=== PATIENT | female | born 1970 | race Caucasian/White ===

== ENCOUNTER 2018-04-14 18:21 | Emergency (ER) | payer OTHER ==
[2018-04-14 18:29] VITALS: TEMP 98.4
[2018-04-14 18:55] LABS: Amphetamine Screen,Urine Not Detected (NotDetected); Barbiturate Screen,Urine Not Detected (NotDetected); Benzodiazepines Screen,Urine Not Detected (NotDetected); Cocaine Screen,Urine Not Detected (NotDetected); Methadone Screen, Urine Not Detected (NotDetected); Opiate Screen,Urine Not Detected (NotDetected); Oxycodone Screen, Urine Not Detected (NotDetected); Phencyclidine Screen,Urine Not Detected (NotDetected); Tricyclic Antidepressant,Urine Not Detected (NotDetected); Urn Cannabinoid Scrn Not Detected (NotDetected)
--- NOTE | 2018-04-14 19:09 | ED ---
Psych HPI - General Chief Complaint: Psychiatric Symptoms Stated Complaint: mental health - petiioned Time Seen by Provider: 04/14/18 18:32 Source: patient, police, RN notes reviewed Mode of arrival: ambulatory Limitations: no limitations - History of Present Illness Initial Comments: 39-year-old female presents emergency department for psychiatric evaluation. Patient states that she recently found out that her is having an affair with her friend. Patient states that she made some threats to her family in which she knew she shouldn't have said. Patient states that her family called in concerned for her health. Patient states that she has been drinking alcohol all day today. She states that she is not suicidal or homicidal. He does admit that she is upset about the situation. Denies any physical complaints. Patient denies any drug use. - Related Data Home Medications Medication Instructions Recorded Confirmed Atenolol 25 mg PO DAILY 04/14/18 04/14/18 Lisinopril [Zestril] 20 mg PO DAILY 04/14/18 04/14/18 Allergies Allergy/AdvReac Type Severity Reaction Status Date / Time No Known Allergies Allergy Verified 04/14/18 18:29 Review of Systems ROS Statement: Those systems with pertinent positive or pertinent negative responses have been documented in the HPI. ROS Other: All systems not noted in ROS Statement are negative. Past Medical History Past Medical History: Hypertension History of Any Multi-Drug Resistant Organisms: None Reported Past Surgical History: No Surgical Hx Reported Past Psychological History: Anxiety, Bipolar, Depression Smoking Status: Former smoker Past Alcohol Use History: Occasional Past Drug Use History: None Reported General Exam Limitations: no limitations General appearance: alert, in no apparent distress, anxious Head exam: Present: atraumatic, normocephalic, normal inspection Eye exam: Present: normal appearance, PERRL, EOMI. Absent: scleral icterus, conjunctival injection, periorbital swelling ENT exam: Present: normal exam, mucous membranes moist Neck exam: Present: normal inspection, full ROM. Absent: tenderness, meningismus, lymphadenopathy Respiratory exam: Present: normal lung sounds bilaterally. Absent: respiratory distress, wheezes, rales, rhonchi, stridor Cardiovascular Exam: Present: normal rhythm, tachycardia, normal heart sounds. Absent: systolic murmur, diastolic murmur, rubs, gallop, clicks Neurological exam: Present: alert, oriented X3, CN II-XII intact Psychiatric exam: Present: anxious Skin exam: Present: warm, dry, intact, normal color. Absent: rash Course Vital Signs 04/14/18 04/14/18 18:26 19:16 Temperature 98.4 F Pulse Rate 119 H Respiratory 20 Rate Blood Pressure 222/159 186/102 O2 Sat by Pulse 98 Oximetry Medical Decision Making - Medical Decision Making 47-year-old female presented emergency from for psychiatric evaluation. Patient reportedly made some threats secondary to reaction of finding out about an affair. Patient was evaluated by EPS and case discussed with on-call psychiatry. They do not feel that she needs inpatient treatment patient contracts for safety and she is not suicidal. - Lab Data Lab Results 04/14/18 Range/Units 18:25 Urine Opiates Screen Not Detected (NotDetected) Ur Oxycodone Screen Not Detected (NotDetected) Urine Methadone Screen Not Detected (NotDetected) Ur Propoxyphene Screen Not Detected (NotDetected) Ur Barbiturates Screen Not Detected (NotDetected) U Tricyclic Antidepress Not Detected (NotDetected) Ur Phencyclidine Scrn Not Detected (NotDetected) Ur Amphetamines Screen Not Detected (NotDetected) U Methamphetamines Scrn Not Detected (NotDetected) U Benzodiazepines Scrn Not Detected (NotDetected) Urine Cocaine Screen Not Detected (NotDetected) U Marijuana (THC) Screen Not Detected (NotDetected) Disposition Clinical Impression: Depression, Adjustment reaction Disposition: HOME SELF-CARE Condition: Stable Instructions: Depression (ED) Additional Instructions: Please return to the Emergency Department if symptoms worsen or any other concerns. Is patient prescribed a controlled substance at d/c from ED?: No Referrals: Deven Rojas MD [Primary Care Provider] - 1-2 days Time of Disposition: 03:43
[2018-04-14] MEDS ORDERED: LISINOPRIL 20 MG TAB PO STA (19:23)
[2018-04-14] MEDS ORDERED: ATENOLOL 25 MG TAB PO STA (19:23)
[2018-04-15 04:13] VITALS: BP 157/82; PULSE 82; RESP 18
== END 2018-04-15 04:29 | disposition home or self-care (01) ==
LOC: EC 18:21
DX: F43.22 Adjustment disorder with anxiety (principal); F32.9 Major depressive disorder, single episode, unspecified; I10 Essential (primary) hypertension; Z79.899 Other long term (current) drug therapy; Z87.891 Personal history of nicotine dependence
CPT/HCPCS: 80306; 82075; 99284

== ENCOUNTER 2019-01-13 14:31 | Emergency (ER) | payer OTHER ==
[2019-01-13 14:54] VITALS: RESP 18
[2019-01-13] MEDS ORDERED: PANTOPRAZOLE 40 MG/10 ML VIAL IVP STA (15:44)
[2019-01-13] MEDS ORDERED: ONDANSETRON 4 MG/2 ML VIAL IVP STA (15:44)
[2019-01-13] MEDS ORDERED: SODIUM CHLORIDE 0.9% 1,000 ML IV ONE (15:44)
[2019-01-13] MEDS ORDERED: SODIUM CHLORIDE 0.9% 1,000 ML IV SCH (15:45)
[2019-01-13] MEDS ORDERED: LABETALOL SYRINGE 5 MG/ML IVP STA (16:01)
--- NOTE | 2019-01-13 16:01 | ED ---
Psych HPI - General Chief Complaint: Psychiatric Symptoms Stated Complaint: mental health Time Seen by Provider: 01/13/19 15:04 Source: patient, family, RN notes reviewed, old records reviewed Mode of arrival: ambulatory - History of Present Illness Initial Comments: 48-year-old female presents emergency department today with complaints of depression and suicidal thoughts. Patient reports that she's not heavy binge drinking for the past few weeks. Patient's attempted to overdose last week by taking her bottle of Xanax as well as audible times of jumping out of the moving vehicle. Patient is here today with her ex-. Apparently Patient recently lost her job after an incident with her recent boyfriend. Patient states that she has been drinking daily. She complains of some nausea and vomiting and right-sided abdominal pain at this time. She has history of hy pertension and has not taken her blood pressure medications the past few days. - Related Data Home Medications Medication Instructions Recorded Confirmed Atenolol 25 mg PO DAILY 04/14/18 01/13/19 Lisinopril [Zestril] 20 mg PO DAILY 04/14/18 01/13/19 ALPRAZolam [Xanax] 0.25 mg PO Q12HR 01/13/19 01/13/19 Albuterol Inhaler [Ventolin Hfa 2 puff INHALATION RT-BID 01/13/19 01/13/19 Inhaler] Ibuprofen [Motrin] 800 mg PO DAILY PRN 01/13/19 01/13/19 Previous Rx's Medication Instructions Recorded chlordiazePOXIDE HCl [Librium] 25 mg PO QID 3 Days #12 capsule 01/13/19 Allergies Allergy/AdvReac Type Severity Reaction Status Date / Time No Known Allergies Allergy Verified 01/13/19 15:19 Review of Systems ROS Statement: Those systems with pertinent positive or pertinent negative responses have been documented in the HPI. ROS Other: All systems not noted in ROS Statement are negative. Past Medical History Past Medical History: Hypertension History of Any Multi-Drug Resistant Organisms: None Reported Past Surgical History: No Surgical Hx Reported Past Psychological History: Anxiety, Bipolar, Depression Smoking Status: Current some day smoker Past Alcohol Use History: Abuse, Daily Past Drug Use History: None Reported General Exam Limitations: no limitations Course Vital Signs 01/13/19 01/13/19 01/13/19 14:50 16:29 17:20 Temperature 98.6 F Pulse Rate 98 70 Respiratory 18 18 Rate Blood Pressure 236/113 205/115 118/63 O2 Sat by Pulse 96 95 95 Oximetry 01/13/19 21:10 Temperature 97.8 F Pulse Rate 77 Respiratory 18 Rate Blood Pressure 207/123 O2 Sat by Pulse 98 Oximetry Medical Decision Making - Medical Decision Making 48 year old female for evaluation for binge drinking, and suicidal thoughts and epression. Given IV fluids and given blood pressure medication as she hasnt taken it recently. LAbs are normal. Pt clear for EPS. She later denies suicidal athoughts and just wants help with substance abuse. Patient will be DC with outpatient referral and Rx for librium. - Lab Data Result diagrams: 01/13/19 16:13 01/13/19 16:13 Lab Results 01/13/19 01/13/19 01/13/19 Range/Units 16:13 16:13 16:13 WBC 5.9 (3.8-10.6) k/uL RBC 4.95 (3.80-5.40) m/uL Hgb 14.7 (11.4-16.0) gm/dL Hct 44.0 (34.0-46.0) % MCV 88.8 (80.0-100.0) fL MCH 29.7 (25.0-35.0) pg MCHC 33.5 (31.0-37.0) g/dL RDW 13.2 (11.5-15.5) % Plt Count 324 (150-450) k/uL Neutrophils % 77 % Lymphocytes % 15 % Monocytes % 5 % Eosinophils % 2 % Basophils % 1 % Neutrophils # 4.5 (1.3-7.7) k/uL Lymphocytes # 0.9 L (1.0-4.8) k/uL Monocytes # 0.3 (0-1.0) k/uL Eosinophils # 0.1 (0-0.7) k/uL Basophils # 0.0 (0-0.2) k/uL Sodium 138 (137-145) mmol/L Potassium 4.4 (3.5-5.1) mmol/L Chloride 103 (98-107) mmol/L Carbon Dioxide 24 (22-30) mmol/L Anion Gap 11 mmol/L BUN 6 L (7-17) mg/dL Creatinine 0.48 L (0.52-1.04) mg/dL Est GFR (CKD-EPI)AfAm >90 (>60 ml/min/1.73 sqM) Est GFR (CKD-EPI)NonAf >90 (>60 ml/min/1.73 sqM) Glucose 114 H (74-99) mg/dL Calcium 9.4 (8.4-10.2) mg/dL Total Bilirubin 0.4 (0.2-1.3) mg/dL AST 29 (14-36) U/L ALT 30 (9-52) U/L Alkaline Phosphatase 89 (38-126) U/L Total Protein 7.2 (6.3-8.2) g/dL Albumin 4.4 (3.5-5.0) g/dL Amylase 58 (30-110) U/L Lipase 270 (23-300) U/L Urine Color Light Yellow Urine Appearance Clear (Clear) Urine pH 5.0 (5.0-8.0) Ur Specific [place] 1.005 (1.001-1.035) Urine Protein Negative (Negative) Urine Glucose (UA) Negative (Negative) Urine Ketones Negative (Negative) Urine Blood Negative (Negative) Urine Nitrite Negative (Negative) Urine Bilirubin Negative (Negative) Urine Urobilinogen <2.0 (<2.0) mg/dL Ur Leukocyte Esterase Negative (Negative) Urine Opiates Screen Detected H (NotDetected) Ur Oxycodone Screen Not Detected (NotDetected) Urine Methadone Screen Not Detected (NotDetected) Ur Propoxyphene Screen Not Detected (NotDetected) Ur Barbiturates Screen Not Detected (NotDetected) U Tricyclic Antidepress Not Detected (NotDetected) Ur Phencyclidine Scrn Not Detected (NotDetected) Ur Amphetamines Screen Not Detected (NotDetected) U Methamphetamines Scrn Not Detected (NotDetected) U Benzodiazepines Scrn Not Detected (NotDetected) Urine Cocaine Screen Not Detected (NotDetected) U Marijuana (THC) Screen Not Detected (NotDetected) Disposition Clinical Impression: Alcohol abuse, Depression Disposition: HOME SELF-CARE Condition: Good Instructions (If sedation given, give patient instructions): Depression (ED), Abuse of Alcohol (ED) Additional Instructions: Follow-up with outpatient referrals were provided. Return to the emergency department if any alarming signs or symptoms occur. Patient should stop drinking. Prescriptions: chlordiazePOXIDE HCl [Librium] 25 mg PO QID 3 Days #12 capsule Is patient prescribed a controlled substance at d/c from ED?: No Referrals: Deven Rojas MD [Primary Care Provider] - 1-2 days Time of Disposition: 20:48
[2019-01-13 16:27] LABS: Basophils % (A) 1 %; Eosinophils # (A) 0.1 k/uL (0-0.7); Eosinophils % (A) 2 %; HGB 14.7 gm/dL (11.4-16.0); Lymphocytes # (A) 0.9 k/uL (1.0-4.8); Lymphocytes % (A) 15 %; MCH 29.7 pg (25.0-35.0); MCHC 33.5 g/dL (31.0-37.0); MCV 88.8 fL (80.0-100.0); Mean Platelet Volume 7.2; Monocytes # (A) 0.3 k/uL (0-1.0); Monocytes % (A) 5 %; Neutrophils # (A) 4.5 k/uL (1.3-7.7); Neutrophils % (A) 77 %; Platelet Count 324 k/uL (150-450); RBC 4.95 m/uL (3.80-5.40); RDW 13.2 % (11.5-15.5); WBC 5.9 k/uL (3.8-10.6)
[2019-01-13 16:29] LABS: Appearance,Urine Clear (Clear); Bilirubin,Urine Negative (Negative); Blood,Urine Negative (Negative); Color,Urine Light Yellow; Glucose,Urine (UA) Negative (Negative); Ketones,Urine Negative (Negative); Leukocyte Esterase,Urine Negative (Negative); Nitrite,Urine Negative (Negative); Protein,Urine Negative (Negative); Specific Gravity,Urine 1.005 (1.001-1.035); Urobilinogen,Urine <2.0 mg/dL (<2.0)
[2019-01-13 16:41] LABS: ALT 30 U/L (9-52); AST 29 U/L (14-36); Albumin 4.4 g/dL (3.5-5.0); Alkaline Phosphatase 89 U/L (38-126); Amylase 58 U/L (30-110); Anion Gap 11 mmol/L; Blood Urea Nitrogen 6 mg/dL (7-17); Calcium 9.4 mg/dL (8.4-10.2); Carbon Dioxide 24 mmol/L (22-30); Chloride 103 mmol/L (98-107); Glucose 114 mg/dL (74-99); Lipase 270 U/L (23-300); Potassium 4.4 mmol/L (3.5-5.1); Sodium 138 mmol/L (137-145); Total Bilirubin 0.4 mg/dL (0.2-1.3); Total Protein 7.2 g/dL (6.3-8.2)
[2019-01-13 16:42] LABS: Amphetamine Screen,Urine Not Detected (NotDetected); Barbiturate Screen,Urine Not Detected (NotDetected); Benzodiazepines Screen,Urine Not Detected (NotDetected); Cocaine Screen,Urine Not Detected (NotDetected); Methadone Screen, Urine Not Detected (NotDetected); Opiate Screen,Urine Detected (NotDetected); Oxycodone Screen, Urine Not Detected (NotDetected); Phencyclidine Screen,Urine Not Detected (NotDetected); Tricyclic Antidepressant,Urine Not Detected (NotDetected); Urn Cannabinoid Scrn Not Detected (NotDetected)
[2019-01-13 21:11] VITALS: BP 207/123; PULSE 77; TEMP 97.8
== END 2019-01-13 21:17 | disposition home or self-care (01) ==
LOC: EC 14:31
DX: F31.9 Bipolar disorder, unspecified (principal); F10.10 Alcohol abuse, uncomplicated; R45.851 Suicidal ideations; R11.2 Nausea with vomiting, unspecified; R10.9 Unspecified abdominal pain; I10 Essential (primary) hypertension; F41.9 Anxiety disorder, unspecified; F17.200 Nicotine dependence, unspecified, uncomplicated; Z79.899 Other long term (current) drug therapy
CPT/HCPCS: 82075; 36415; 80053; 82150; 83690; 85025; 81003; 80306; 99285; 96374; 96375 ×2; 96361 ×5; J2405; C9113

== ENCOUNTER 2019-02-20 21:41 | Inpatient (IN) | payer MEDICAID, OTHER ==
[2019-02-20] MEDS ORDERED: SODIUM CHLORIDE 0.9% 1,000 ML IV STA (22:48)
[2019-02-20] MEDS ORDERED: SODIUM CHLORIDE 0.9% 500 ML 500 ML IV STA (22:48)
[2019-02-20 22:49] LABS: Amphetamine Screen,Urine Not Detected (NotDetected); Barbiturate Screen,Urine Not Detected (NotDetected); Benzodiazepines Screen,Urine Not Detected (NotDetected); Cocaine Screen,Urine Not Detected (NotDetected); Methadone Screen, Urine Not Detected (NotDetected); Opiate Screen,Urine Not Detected (NotDetected); Oxycodone Screen, Urine Not Detected (NotDetected); Phencyclidine Screen,Urine Not Detected (NotDetected); Tricyclic Antidepressant,Urine Not Detected (NotDetected); Urn Cannabinoid Scrn Not Detected (NotDetected)
--- NOTE | 2019-02-20 22:51 | ED ---
Psych HPI - General Chief Complaint: Psychiatric Symptoms Stated Complaint: psych eval Time Seen by Provider: 02/20/19 22:14 Source: patient, RN notes reviewed Mode of arrival: ambulatory - History of Present Illness Initial Comments: This a 47-year-old female history depression and suicidal thoughts and attempts years ago who states she's been depressed for past couple months. She was brought in today by her ex- because of being depressed and suicidal she states she bought NyQuil and 72 sleeping pills yesterday but did not take them. She is alcohol she states she has not drank however suggest day. She also has a history of hypertension and did not take her medication for the past 2 days but did taken just prior to admission today. Upon arrival for blood pressure was 242/140. She denies any symptoms however. She was in a relationship with the ex-boyfriend she states her ex-boyfriend his girlfriend got a fight from her job and it is having to the stress. No other MD Complaint: suicidal ideation, feels depressed - Related Data Home Medications Medication Instructions Recorded Confirmed Atenolol 25 mg PO DAILY 04/14/18 02/21/19 Lisinopril [Zestril] 20 mg PO DAILY 04/14/18 02/21/19 ALPRAZolam [Xanax] 0.25 mg PO Q12HR PRN 01/13/19 02/21/19 Ibuprofen [Motrin] 800 mg PO DAILY PRN 01/13/19 02/21/19 Allergies Allergy/AdvReac Type Severity Reaction Status Date / Time No Known Allergies Allergy Verified 02/21/19 05:58 Review of Systems ROS Statement: Those systems with pertinent positive or pertinent negative responses have been documented in the HPI. ROS Other: All systems not noted in ROS Statement are negative. Past Medical History Past Medical History: Hypertension History of Any Multi-Drug Resistant Organisms: None Reported Past Surgical History: No Surgical Hx Reported Past Psychological History: Anxiety, Bipolar, Depression Smoking Status: Current some day smoker Past Alcohol Use History: Abuse, Daily Past Drug Use History: None Reported - Past Family History Father Family Medical History: Dementia, Myocardial Infarction ([place]) Additional Family Medical History / Comment(s): Alcoholism Mother Family Medical History: Musculoskeletal Disorder Additional Family Medical History / Comment(s): Depression Son(s) Family Medical History: No Reported History Daughter(s) Family Medical History: No Reported History General Exam - General Exam Comments Initial Comments: This is a well-developed well-nourished awake alert oriented history female Limitations: no limitations General appearance: alert, anxious Head exam: Present: atraumatic, normocephalic, normal inspection Eye exam: Present: normal appearance, PERRL, EOMI. Absent: scleral icterus, conjunctival injection, periorbital swelling ENT exam: Present: mucous membranes dry Neck exam: Present: normal inspection, full ROM, other (No stridor JVD or bruits). Absent: tenderness, meningismus, lymphadenopathy Respiratory exam: Present: normal lung sounds bilaterally. Absent: respiratory distress, wheezes, rales, rhonchi, stridor Cardiovascular Exam: Present: regular rate, normal rhythm, normal heart sounds. Absent: systolic murmur, diastolic murmur, rubs, gallop, clicks GI/Abdominal exam: Present: soft, normal bowel sounds. Absent: distended, tenderness, guarding, rebound, rigid, bruit, pulsatile mass, hernia Extremities exam: Present: normal inspection, full ROM, normal capillary refill. Absent: tenderness, pedal edema, joint swelling, calf tenderness Back exam: Present: normal inspection Neurological exam: Present: alert, oriented X3, CN II-XII intact Psychiatric exam: Present: normal affect, normal mood Skin exam: Present: warm, dry, intact, normal color. Absent: rash Course Vital Signs 02/20/19 02/20/19 02/20/19 21:50 23:04 23:10 Temperature 99.2 F Pulse Rate 90 67 Respiratory 18 Rate Blood Pressure 242/140 159/102 168/101 O2 Sat by Pulse 97 96 Oximetry 02/20/19 02/20/19 02/20/19 23:20 23:30 23:35 Temperature Pulse Rate 68 69 65 Respiratory Rate Blood Pressure 168/101 168/101 161/95 O2 Sat by Pulse 97 97 96 Oximetry 02/20/19 02/20/19 02/21/19 23:40 23:50 00:00 Temperature Pulse Rate 64 64 68 Respiratory Rate Blood Pressure 161/95 161/95 161/95 O2 Sat by Pulse 97 96 97 Oximetry 02/21/19 02/21/19 02/21/19 00:10 00:20 00:30 Temperature Pulse Rate 66 63 Respiratory Rate Blood Pressure 150/92 150/92 150/92 O2 Sat by Pulse 98 97 96 Oximetry 02/21/19 02/21/19 02/21/19 00:40 00:50 01:00 Temperature Pulse Rate 64 61 Respiratory Rate Blood Pressure 156/86 156/86 156/86 O2 Sat by Pulse 97 96 96 Oximetry 02/21/19 02/21/19 02/21/19 01:10 01:20 01:30 Temperature Pulse Rate 63 64 Respiratory Rate Blood Pressure 148/89 148/89 148/89 O2 Sat by Pulse 97 97 96 Oximetry 02/21/19 02/21/19 02/21/19 01:40 01:50 02:00 Temperature Pulse Rate Respiratory Rate Blood Pressure 161/95 161/95 161/95 O2 Sat by Pulse 97 96 97 Oximetry 02/21/19 02/21/19 02/21/19 02:10 04:00 05:17 Temperature Pulse Rate 62 63 Respiratory 18 18 Rate Blood Pressure 161/92 163/94 163/100 O2 Sat by Pulse 98 98 99 Oximetry Medical Decision Making - Medical Decision Making The patient was evaluated by psychiatric service and ultimately admitted for inpatient treatment. - Lab Data Result diagrams: 02/20/19 23:00 02/20/19 23:00 Lab Results 02/20/19 02/20/19 02/20/19 Range/Units 22:30 22:30 23:00 WBC (3.8-10.6) k/uL RBC (3.80-5.40) m/uL Hgb (11.4-16.0) gm/dL Hct (34.0-46.0) % MCV (80.0-100.0) fL MCH (25.0-35.0) pg MCHC (31.0-37.0) g/dL RDW (11.5-15.5) % Plt Count (150-450) k/uL Neutrophils % % Lymphocytes % % Monocytes % % Eosinophils % % Basophils % % Neutrophils # (1.3-7.7) k/uL Lymphocytes # (1.0-4.8) k/uL Monocytes # (0-1.0) k/uL Eosinophils # (0-0.7) k/uL Basophils # (0-0.2) k/uL Sodium (137-145) mmol/L Potassium (3.5-5.1) mmol/L Chloride (98-107) mmol/L Carbon Dioxide (22-30) mmol/L Anion Gap mmol/L BUN (7-17) mg/dL Creatinine (0.52-1.04) mg/dL Est GFR (CKD-EPI)AfAm (>60 ml/min/1.73 sqM) Est GFR (CKD-EPI)NonAf (>60 ml/min/1.73 sqM) Glucose (74-99) mg/dL Calcium (8.4-10.2) mg/dL Magnesium (1.6-2.3) mg/dL Total Bilirubin (0.2-1.3) mg/dL AST (14-36) U/L ALT (9-52) U/L Alkaline Phosphatase (38-126) U/L Total Creatine Kinase 41 (30-135) U/L CK-MB (CK-2) 0.6 (0.0-2.4) ng/mL CK-MB (CK-2) Rel Index 1.5 Total Protein (6.3-8.2) g/dL Albumin (3.5-5.0) g/dL Urine HCG, Qual Not Detected (Not Detectd) Urine Opiates Screen Not Detected (NotDetected) Ur Oxycodone Screen Not Detected (NotDetected) Urine Methadone Screen Not Detected (NotDetected) Ur Propoxyphene Screen Not Detected (NotDetected) Ur Barbiturates Screen Not Detected (NotDetected) U Tricyclic Antidepress Not Detected (NotDetected) Ur Phencyclidine Scrn Not Detected (NotDetected) Ur Amphetamines Screen Not Detected (NotDetected) U Methamphetamines Scrn Not Detected (NotDetected) U Benzodiazepines Scrn Not Detected (NotDetected) Urine Cocaine Screen Not Detected (NotDetected) U Marijuana (THC) Screen Not Detected (NotDetected) 02/20/19 02/20/19 Range/Units 23:00 23:00 WBC 6.3 (3.8-10.6) k/uL RBC 4.74 (3.80-5.40) m/uL Hgb 15.2 (11.4-16.0) gm/dL Hct 44.2 (34.0-46.0) % MCV 93.1 (80.0-100.0) fL MCH 31.9 (25.0-35.0) pg MCHC 34.3 (31.0-37.0) g/dL RDW 13.7 (11.5-15.5) % Plt Count 183 (150-450) k/uL Neutrophils % 80 % Lymphocytes % 11 % Monocytes % 5 % Eosinophils % 2 % Basophils % 1 % Neutrophils # 5.1 (1.3-7.7) k/uL Lymphocytes # 0.7 L (1.0-4.8) k/uL Monocytes # 0.3 (0-1.0) k/uL Eosinophils # 0.1 (0-0.7) k/uL Basophils # 0.0 (0-0.2) k/uL Sodium 138 (137-145) mmol/L Potassium 3.9 (3.5-5.1) mmol/L Chloride 106 (98-107) mmol/L Carbon Dioxide 25 (22-30) mmol/L Anion Gap 7 mmol/L BUN 9 (7-17) mg/dL Creatinine 0.54 (0.52-1.04) mg/dL Est GFR (CKD-EPI)AfAm >90 (>60 ml/min/1.73 sqM) Est GFR (CKD-EPI)NonAf >90 (>60 ml/min/1.73 sqM) Glucose 136 H (74-99) mg/dL Calcium 9.8 (8.4-10.2) mg/dL Magnesium 1.8 (1.6-2.3) mg/dL Total Bilirubin 0.5 (0.2-1.3) mg/dL AST 135 H (14-36) U/L ALT 180 H (9-52) U/L Alkaline Phosphatase 76 (38-126) U/L Total Creatine Kinase (30-135) U/L CK-MB (CK-2) (0.0-2.4) ng/mL CK-MB (CK-2) Rel Index Total Protein 6.9 (6.3-8.2) g/dL Albumin 4.3 (3.5-5.0) g/dL Urine HCG, Qual (Not Detectd) Urine Opiates Screen (NotDetected) Ur Oxycodone Screen (NotDetected) Urine Methadone Screen (NotDetected) Ur Propoxyphene Screen (NotDetected) Ur Barbiturates Screen (NotDetected) U Tricyclic Antidepress (NotDetected) Ur Phencyclidine Scrn (NotDetected) Ur Amphetamines Screen (NotDetected) U Methamphetamines Scrn (NotDetected) U Benzodiazepines Scrn (NotDetected) Urine Cocaine Screen (NotDetected) U Marijuana (THC) Screen (NotDetected) Disposition Clinical Impression: Depression, Suicidal ideation, Hypertension Disposition: TRANSFER TO PSYCH HOSP/UNIT Condition: Stable
[2019-02-20 23:13] LABS: Basophils % (A) 1 %; Eosinophils # (A) 0.1 k/uL (0-0.7); Eosinophils % (A) 2 %; HCT 44.2 % (34.0-46.0); HGB 15.2 gm/dL (11.4-16.0); Lymphocytes # (A) 0.7 k/uL (1.0-4.8); Lymphocytes % (A) 11 %; MCH 31.9 pg (25.0-35.0); MCHC 34.3 g/dL (31.0-37.0); MCV 93.1 fL (80.0-100.0); Monocytes # (A) 0.3 k/uL (0-1.0); Monocytes % (A) 5 %; Neutrophils # (A) 5.1 k/uL (1.3-7.7); Neutrophils % (A) 80 %; Platelet Count 183 k/uL (150-450); RBC 4.74 m/uL (3.80-5.40); RDW 13.7 % (11.5-15.5); WBC 6.3 k/uL (3.8-10.6)
[2019-02-20 23:26] LABS: ALT 180 U/L (9-52); AST 135 U/L (14-36); Albumin 4.3 g/dL (3.5-5.0); Alkaline Phosphatase 76 U/L (38-126); Anion Gap 7 mmol/L; Blood Urea Nitrogen 9 mg/dL (7-17); Calcium 9.8 mg/dL (8.4-10.2); Carbon Dioxide 25 mmol/L (22-30); Chloride 106 mmol/L (98-107); Glucose 136 mg/dL (74-99); Magnesium 1.8 mg/dL (1.6-2.3); Potassium 3.9 mmol/L (3.5-5.1); Sodium 138 mmol/L (137-145); Total Bilirubin 0.5 mg/dL (0.2-1.3); Total Protein 6.9 g/dL (6.3-8.2)
[2019-02-20 23:40] LABS: Creatine Kinase MB 0.6 ng/mL (0.0-2.4)
[2019-02-21] MEDS ORDERED: ACETAMINOPHEN TAB 325 MG TAB PO PRN (05:08)
[2019-02-21] MEDS ORDERED: MAG HYDROX/AL HYDROX/SIMETH 30 ML CUP PO PRN (05:08)
[2019-02-21] MEDS ORDERED: MAGNESIUM HYDROXIDE 2,400 MG/10 ML CUP PO PRN (05:08)
[2019-02-21] MEDS ORDERED: ZIPRASIDONE 20 MG VIAL IM PRN (05:08)
[2019-02-21] MEDS: LORazepam 1 MG TAB PO PRN (05:44)
[2019-02-21 05:53] VITALS: BMI 29.5
[2019-02-21] MEDS: ATENOLOL 25 MG TAB PO SCH (08:49)
[2019-02-21] MEDS: LISINOPRIL 20 MG TAB PO SCH (08:49)
--- NOTE | 2019-02-21 10:14 | P.HP ---
Psychiatric H&P - . H&P Date: 02/21/19 History & Physical: Allergies Allergy/AdvReac Type Severity Reaction Status Date / Time No Known Allergies Allergy Verified 02/21/19 05:58 Vital Signs Temp 98.5 F 02/21/19 05:46 Pulse 72 02/21/19 08:51 Resp 18 02/21/19 08:51 BP 159/88 02/21/19 08:51 Pulse Ox 97 02/21/19 05:46 Intake & Output 02/20/19 02/21/19 02/21/19 18:59 06:59 18:59 Weight 66.338 kg Laboratory Last Values WBC 6.3 k/uL (3.8-10.6) 02/20/19 23:00 RBC 4.74 m/uL (3.80-5.40) 02/20/19 23:00 Hgb 15.2 gm/dL (11.4-16.0) 02/20/19 23:00 Hct 44.2 % (34.0-46.0) 02/20/19 23:00 MCV 93.1 fL (80.0-100.0) 02/20/19 23:00 MCH 31.9 pg (25.0-35.0) 02/20/19 23:00 MCHC 34.3 g/dL (31.0-37.0) 02/20/19 23:00 RDW 13.7 % (11.5-15.5) 02/20/19 23:00 Plt Count 183 k/uL (150-450) 02/20/19 23:00 Neutrophils % 80 % 02/20/19 23:00 Lymphocytes % 11 % 02/20/19 23:00 Monocytes % 5 % 02/20/19 23:00 Eosinophils % 2 % 02/20/19 23:00 Basophils % 1 % 02/20/19 23:00 Neutrophils # 5.1 k/uL (1.3-7.7) 02/20/19 23:00 Lymphocytes # 0.7 k/uL (1.0-4.8) L 02/20/19 23:00 Monocytes # 0.3 k/uL (0-1.0) 02/20/19 23:00 Eosinophils # 0.1 k/uL (0-0.7) 02/20/19 23:00 Basophils # 0.0 k/uL (0-0.2) 02/20/19 23:00 Sodium 138 mmol/L (137-145) 02/20/19 23:00 Potassium 3.9 mmol/L (3.5-5.1) 02/20/19 23:00 Chloride 106 mmol/L (98-107) 02/20/19 23:00 Carbon Dioxide 25 mmol/L (22-30) 02/20/19 23:00 Anion Gap 7 mmol/L 02/20/19 23:00 BUN 9 mg/dL (7-17) 02/20/19 23:00 Creatinine 0.54 mg/dL (0.52-1.04) 02/20/19 23:00 Est GFR (CKD-EPI)AfAm >90 (>60 ml/min/1.73 sqM) 02/20/19 23:00 Est GFR (CKD-EPI)NonAf >90 (>60 ml/min/1.73 sqM) 02/20/19 23:00 Glucose 136 mg/dL (74-99) H 02/20/19 23:00 Calcium 9.8 mg/dL (8.4-10.2) 02/20/19 23:00 Magnesium 1.8 mg/dL (1.6-2.3) 02/20/19 23:00 Total Bilirubin 0.5 mg/dL (0.2-1.3) 02/20/19 23:00 AST 135 U/L (14-36) H 02/20/19 23:00 ALT 180 U/L (9-52) H 02/20/19 23:00 Alkaline Phosphatase 76 U/L (38-126) 02/20/19 23:00 Total Creatine Kinase 41 U/L (30-135) 02/20/19 23:00 CK-MB (CK-2) 0.6 ng/mL (0.0-2.4) 02/20/19 23:00 CK-MB (CK-2) Rel Index 1.5 02/20/19 23:00 Total Protein 6.9 g/dL (6.3-8.2) 02/20/19 23:00 Albumin 4.3 g/dL (3.5-5.0) 02/20/19 23:00 Urine HCG, Qual Not Detected (Not Detectd) 02/20/19 22:30 Urine Opiates Screen Not Detected (NotDetected) 02/20/19 22:30 Ur Oxycodone Screen Not Detected (NotDetected) 02/20/19 22:30 Urine Methadone Screen Not Detected (NotDetected) 02/20/19 22:30 Ur Propoxyphene Screen Not Detected (NotDetected) 02/20/19 22:30 Ur Barbiturates Screen Not Detected (NotDetected) 02/20/19 22:30 U Tricyclic Antidepress Not Detected (NotDetected) 02/20/19 22:30 Ur Phencyclidine Scrn Not Detected (NotDetected) 02/20/19 22:30 Ur Amphetamines Screen Not Detected (NotDetected) 02/20/19 22:30 U Methamphetamines Scrn Not Detected (NotDetected) 02/20/19 22:30 U Benzodiazepines Scrn Not Detected (NotDetected) 02/20/19 22:30 Urine Cocaine Screen Not Detected (NotDetected) 02/20/19 22:30 U Marijuana (THC) Screen Not Detected (NotDetected) 02/20/19 22:30 Assessment and Plan Assessment: This a 47-year-old female history depression and suicidal thoughts and attempts years ago who states she's been depressed for past couple months. She was brought in today by her ex- because of being depressed and suicidal she states she bought NyQuil and 72 sleeping pills yesterday but did not take them. She is alcohol she states she has not drank however suggest day. She also has a history of hypertension and did not take her medication for the past 2 days but did taken just prior to admission today. Upon arrival for blood pressure was 242/140. She denies any symptoms however. She was in a relationship with the ex-boyfriend she states her ex-boyfriend his girlfriend got a fight from her job and it is having to the stress. No other MD Complaint: suicidal ideation, feels depressed Pt presents voluntary to EC /c c/o suicidal ideation /c a plan; 2 days ago pt bought 1 bottle of Nyquil and 72 OTC sleeping pills to end her life. Pt denies HI, denies hallucinations and no delusional thoughts verbalized. 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 Pt states "I've been having really bad problems /c depression. I'm just really depressed. I think there's something wrong /c me." A & O x4, good eye contact, soft, clear speech, depressed, tearful mood.Pt states she's lost approximately 20 lbs in past 2 months d/t decreased appetitePt states in the past month she's had considerable increase consumption of ETOH; pt states she drinks approximately 5 days out of 7 and drinks approximately 11-12 beers. Pt states she's never had any seizures. Pt states she has gone through ETOH withdrawal in the past. - Related Data Home Medications Medication Instructions Recorded Confirmed Atenolol 25 mg PO DAILY 04/14/18 02/20/19 Lisinopril [Zestril] 20 mg PO DAILY 04/14/18 02/20/19 ALPRAZolam [Xanax] 0.25 mg PO Q12HR PRN 01/13/19 02/20/19 Ibuprofen [Motrin] 800 mg PO DAILY PRN 01/13/19 02/20/19 Allergies Allergy/AdvReac Type Severity Reaction Status Date / Time No Known Allergies Allergy Verified 02/20/19 22:18 Past Medical History Past Medical History: Hypertension History of Any Multi-Drug Resistant Organisms: None Reported Past Surgical History: No Surgical Hx Reported Past Psychological History: Anxiety, Bipolar, Depression Smoking Status: Current some day smoker Past Alcohol Use History: Abuse, Daily Past Drug Use History: None Reported Musculoskeletal Examination - Abnormal/Involuntary Movements: [none Strength: [greater than antigravity (greater than/equal to 3/5) in all extremities Muscle Tone: [no impairment Gait: [grossly normal Station: [grossly normal Mental Status Examination - this is a 48-year-old female who is who arrived reacquainted herself with her ex- and was having a relationship with him. She then became enamored with a person on Facebook and had a relationship with that person who turned out to be a catastrophic nightmare. She was depressed at age 18 and was placed on Lexapro which did not help her that much. 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 She states that her father was alcoholic and is now recovered. Her drinking increased after that relationship was falling apart until the point where she is not able to sleep at night. She was drinking all night long she therefore was brought in by her ex- for treatment because they did not like rubbed she was taking and that he had an intervention. Her last drink was on 02/19/2019. General Appearance: [well groomed, casual, appears stated age Speech/Language: [spontaneous, soft Attitude/Behavior: [cooperative, guarded Mood: [ depressed, anxious, hopelessness Affect: [ flat, blunted constricted] Orientation: [time, person, place situation] Thought Content: [wnl, denies delusions, obsessions, phobias, other] Risk Factors: [Admits suicidal (ideations, plan), and/or Homicidal (ideations, plan), other] Perception: [wnl, denies hallucinations (auditory, visual, tactile), other] Thought Processes: [goal-oriented Concentration/Attention Span: [wnl, [Per observation and interview with the patient] Recent Memory: [wnl, i 3 out of 3 in 3 minutes] Remote Memory: [wnl] [past events, as related history] Intelligence: [ above average] [based on history, based on vocabulary, syntax, grammar, and content] Judgement: [fair] [per patient's behavior/history of present illness] Insight: [Fair] [understanding severity of illness/history of present illness] Admitting Diagnosis: [Major depressive disorder severe and suicidal ideation; alcohol use disorder severe] Patient Strengths - Personal Skills: [x] Achievements: [x] Steady employment/financial stability: [] Housing stability: [x] Able to vocalize needs: [x] Values and traditions: [x] Motivation, determination, readiness for change: [x] Setting and pursuing goals, hopes, dreams, aspirations: [x] Resources - social, interpersonal, monetary: [x] Interpersonal relationships and supports available - family, relatives, friends: [x] Patient Limitations: [medication, lack of social supports] Initial Plan of Care: [Patient admitted on a formal voluntary to [address] [place] [address] for evaluation and treatment of major depressive disorder with suicidal ideation. She will be evaluated by medicine, psychiatry, nursing staff, social work and occupational therapy. She'll be placed in [facility] milieu therapeutic environment and expects to go to groups and interact in peer environment within a appropriate manner. She will be placed on 15 minute checks as usual protocol on [facility]. She also be placed on Catapres 0.1 mg twice a day for alcohol withdrawal, started on Effexor 37.5 mg by mouth daily at bedtime extended release and ReVia 50 mg at bedtime to decrease craving for alcohol. Titration of his medications will occur over the next 4 days] Estimated Length of Stay: [5 days] Initial Discharge Plan: [home, referred to therapist, a meetings 90 meetings in 90 days Prognosis: [Good] Justification for Inpatient Hospitalization - [ anxiety, depression resulting in significant loss of functioning.] [Dangerous to self, others, or property with need for controlled environment.] [Emotional or behavioral conditions and complications requiring 24 hour medical and nursing care.] [Need for special drug therapy, or other therapeutic program requiring continuous hospitalization.] [Failure of social or occupational functioning.] (1) Depression Current Visit: Yes Status: Acute Code(s): F32.9 - MAJOR DEPRESSIVE DISORDER, SINGLE EPISODE, UNSPECIFIED SNOMED Code(s): 22246994 Time with Patient: Greater than 30
[2019-02-21 10:19] LABS: Appearance,Urine Cloudy (Clear); Bacteria,Urine Rare /hpf; Bilirubin,Urine Negative (Negative); Blood,Urine Negative (Negative); Color,Urine Yellow; Glucose,Urine (UA) Negative (Negative); Ketones,Urine Negative (Negative); Leukocyte Esterase,Urine Negative (Negative); Mucus,Urine Rare /hpf; Nitrite,Urine Negative (Negative); Protein,Urine Trace (Negative); RBC,Urine 1 /hpf (0-5); Specific Gravity,Urine 1.019 (1.001-1.035); Squamous Epithelial Cell,Urine 10 /hpf (0-4); Urobilinogen,Urine <2.0 mg/dL (<2.0); WBC,Urine 5 /hpf (0-5)
[2019-02-21 12:08] LABS: Albumin 3.9 g/dL (3.5-5.0); Bilirubin, Delta 0.1 mg/dL (0.0-0.2); Bilirubin,Unconjugated 0.4 mg/dL (0.0-1.1); Total Bilirubin 0.5 mg/dL (0.2-1.3); Total Protein 6.2 g/dL (6.3-8.2)
[2019-02-21] MEDS: NALTREXONE HCL 50 MG TAB PO SCH (20:48)
[2019-02-21] MEDS: cloNIDine HCL 0.1 MG TAB PO SCH (20:48)
[2019-02-21] MEDS ORDERED: VENLAFAXINE HCL ER 37.5 MG CAP PO SCH (21:00)
[2019-02-21 22:02] LABS: Hemoglobin A1C 5.5 % (4.0-6.0)
[2019-02-22] MEDS: LORazepam 1 MG TAB PO PRN (02:38)
--- NOTE | 2019-02-22 08:25 | CONS ---
CONSULTATION DATE OF CONSULTATION: 02/21/2019. REASON FOR CONSULTATION: Medical management requested by Dr. Werner. CONSULTATION: This is a 48-year-old patient who follows with Dr. Rojas. The patient has been having trouble with her relationships including she had gotten back with her ex- and then she got mixed up in another relationship. 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 She has 3 children living with her ex-. The patient is rather stressed out, depressed, anxious. For the last month she has been drinking quite a bit and having anywhere from 5-6 bowel movements a day. Oral intake has been variable. The patient has a history of colitis. The patient also smokes about 3 cigarettes a day, it is variable. Currently living by herself. Currently not employed. REVIEW OF SYSTEMS: CONSTITUTIONAL: Tired. HEENT: None. RESPIRATORY none. GASTROINTESTINAL: As above, minimal abdominal pain. GENITOURINARY: None. MUSCULOSKELETAL. None. DERMATOLOGIC, HEMATOLOGIC, LYMPHATIC: None. PSYCHIATRY: Anxiety and depression. NEUROLOGICAL: None. PAST MEDICAL HISTORY: Past medical history of hypertension, colitis, bipolar disorder. PAST SURGICAL HISTORY: Tonsillectomy, colonoscopy. PSYCH HISTORY: Bipolar. SOCIAL HISTORY: Drinking close to 11-12 beers a day. A few cigarettes a day. Lives by himself. FAMILY HISTORY: Dementia, myocardial infarction, alcoholism. HOME MEDICATIONS: 1. Zestril 20 mg a day. 2. Atenolol 25 mg a day. 3. Xanax 0.25 p.o. q.12h p.r.n. ALLERGIES: None. PHYSICAL EXAMINATION: VITAL SIGNS: Temperature 98.5, pulse 57, respiratory rate 16, blood pressure 147/103, pulse ox 97% on room air. GENERAL APPEARANCE: Average built, sitting up, not in distress. EYES: Pupils are equal. Conjunctivae normal. HEENT: External appearance of nose and ears normal. Oral cavity normal. NECK: JVD not raised. Mass not palpable. RESPIRATORY: Effort normal. Lungs are clear. CARDIOVASCULAR: First and second sounds normal. No edema. ABDOMEN: Soft, nontender. Liver and spleen not palpable. LYMPHATICS: No lymph nodes palpable in the neck or axilla. PSYCHIATRY: Alert and oriented x3. Mood and affect normal. NEUROLOGICAL: Pupils equal. Cranial nerves grossly intact. Power and sensation grossly intact. INVESTIGATIONS: White count 6.3, hemoglobin 15.2, potassium 3.9. BUN and creatinine is normal. TSH is normal. LDL 51. ASSESSMENT: 1. Essential hypertension, uncontrolled from taking medications intermittently. 2. Recent increased intake of alcohol. 3. Noninfectious diarrhea. Patient's stool came back negative for C diff. We will check for ova and parasites. Diarrhea could well be for from poor diet. 4. History of colitis. PLAN: We will send off stool for ova and parasites. We will use Metamucil to form up the stool. Will use a nicotine patch. Watch for DTs. Care was discussed with the patient. Patient to follow up with Dr. Rojas after discharge. Thank you Dr. Werner for this consultation. AMADEOL / MAXN: [id number] /
[2019-02-22] MEDS: ATENOLOL 25 MG TAB PO SCH (08:39)
[2019-02-22] MEDS: LISINOPRIL 20 MG TAB PO SCH (08:39)
[2019-02-22] MEDS: cloNIDine HCL 0.1 MG TAB PO SCH (08:39)
--- NOTE | 2019-02-22 12:20 | P.PN ---
Subjective Progress Note Date: 02/22/19 Principal diagnosis: Major depressive disorder severe and suicidal ideation; alcohol use disorder severe Chart reviewed and discussed with nursing staff. Less depressed and less anxious. Has elevated bp and discussed hat finisher Objective - Vital Signs Vital signs: Vital Signs Temp 98.1 F 02/22/19 02:42 Pulse 78 02/22/19 08:49 Resp 16 02/22/19 02:42 BP 186/100 02/22/19 08:49 Pulse Ox 97 02/21/19 05:46 Intake & Output 02/21/19 02/22/19 02/22/19 18:59 06:59 18:59 Weight 66.338 kg - Labs CBC & Chem 7: 02/20/19 23:00 02/20/19 23:00 Labs: Abnormal Lab Results - Last 24 Hours (Table) 02/21/19 Range/Units 10:12 AST 96 H (14-36) U/L ALT 146 H (9-52) U/L Total Protein 6.2 L (6.3-8.2) g/dL Cholesterol 226 H (<200) mg/dL HDL Cholesterol 157 H (40-60) mg/dL Assessment and Plan Assessment: This a 47-year-old female history depression and suicidal thoughts and attempts years ago who states she's been depressed for past couple months. She was brought in today by her ex- because of being depressed and suicidal she states she bought NyQuil and 72 sleeping pills yesterday but did not take them. She is alcohol she states she has not drank however suggest day. She also has a history of hypertension and did not take her medication for the past 2 days but did taken just prior to admission today. Upon arrival for blood pressure was 242/140. She denies any symptoms however. She was in a relationship with the ex-boyfriend she states her ex-boyfriend his girlfriend got a fight from her job and it is having to the stress. No other MD Complaint: suicidal ideation, feels depressed Pt presents voluntary to EC /c c/o suicidal ideation /c a plan; 2 days ago pt bought 1 bottle of Nyquil and 72 OTC sleeping pills to end her life. Pt denies HI, denies hallucinations and no delusional thoughts verbalized. 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 Pt states "I've been having really bad problems /c depression. I'm just really depressed. I think there's something wrong /c me." A & O x4, good eye contact, soft, clear speech, depressed, tearful mood.Pt states she's lost approximately 20 lbs in past 2 months d/t decreased appetitePt states in the past month she's had considerable increase consumption of ETOH; pt states she drinks approximately 5 days out of 7 and drinks approximately 11-12 beers. Pt states she's never had any seizures. Pt states she has gone through ETOH withdrawal in the past. Mental Status Examination - this is a 48-year-old female who is who arrived reacquainted herself with her ex- and was having a relationship with him. She then became enamored with a person on Facebook and had a relationship with that person who turned out to be a catastrophic nightmare. She was depressed at age 18 and was placed on Lexapro which did not help her that much. 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 She states that her father was alcoholic and is now recovered. Her drinking increased after that relationship was falling apart until the point where she is not able to sleep at night. She was drinking all night long she therefore was brought in by her ex- for treatment because they did not like rubbed she was taking and that he had an intervention. Her last drink was on 02/19/2019. General Appearance: [well groomed, casual, appears stated age Speech/Language: [spontaneous, soft Attitude/Behavior: [cooperative, guarded Mood: [ depressed, anxious, hopelessness Affect: [ flat, blunted constricted] Orientation: [time, person, place situation] Thought Content: [wnl, denies delusions, obsessions, phobias, other] Risk Factors: [Admits suicidal (ideations, plan), and/or Homicidal (ideations, plan), other] Perception: [wnl, denies hallucinations (auditory, visual, tactile), other] Thought Processes: [goal-oriented Concentration/Attention Span: [wnl, [Per observation and interview with the patient] Recent Memory: [wnl, i 3 out of 3 in 3 minutes] Remote Memory: [wnl] [past events, as related history] Intelligence: [ above average] [based on history, based on vocabulary, syntax, grammar, and content] Judgement: [fair] [per patient's behavior/history of present illness] Insight: [Fair] [understanding severity of illness/history of present illness] Admitting Diagnosis: [Major depressive disorder severe and suicidal ideation; alcohol use disorder severe] Initial Plan of Care: [Patient admitted on a formal voluntary to [address] [place] [address] for evaluation and treatment of major depressive disorder with suicidal ideation. She will be evaluated by medicine, psychiatry, nursing staff, social work and occupational therapy. She'll be placed in [facility] milieu therapeutic environment and expects to go to groups and interact in peer environment within a appropriate manner. She will be placed on 15 minute checks as usual protocol on [facility]. She also be placed on Catapres 0.1 mg twice a day for alcohol withdrawal, started on Effexor 37.5 mg by mouth daily at bedtime extended release and ReVia 50 mg at bedtime to decrease craving for alcohol. Titration of his medications will occur over the next 4 days 02/22/2019: 19 ReVia 50 mg at bedtime and she has no side effects from the medication. Effexor will be increased to 75 mg by mouth daily at bedtime extended release and Catapres will be raised to 0.2 mg 3 times a day for withdrawal blood pressure. She'll remain on 15 minute checks for safety. We discussed further treatment for her alcohol use disorder and possibility of [place] bring that up on team meeting on Sunday. ] (1) Depression Current Visit: Yes Status: Acute Code(s): F32.9 - MAJOR DEPRESSIVE DISORDER, SINGLE EPISODE, UNSPECIFIED SNOMED Code(s): 94864896 Time with Patient: Less than 30
[2019-02-22] MEDS: cloNIDine HCL 0.2 MG TAB PO SCH ×2 (15:27→21:02)
[2019-02-22] MEDS ORDERED: VENLAFAXINE HCL ER 75 MG CAP PO SCH (21:00)
[2019-02-22] MEDS: NALTREXONE HCL 50 MG TAB PO SCH (21:00)
[2019-02-23] MEDS: LORazepam 1 MG TAB PO PRN (06:53)
[2019-02-23] MEDS: ATENOLOL 25 MG TAB PO SCH (08:57)
[2019-02-23] MEDS: LISINOPRIL 20 MG TAB PO SCH (08:57)
[2019-02-23] MEDS: cloNIDine HCL 0.2 MG TAB PO SCH ×3 (10:24→21:14)
--- NOTE | 2019-02-23 12:13 | P.PN ---
Subjective Progress Note Date: 02/23/19 Principal diagnosis: Major depressive disorder severe and suicidal ideation; alcohol use disorder severe Chart reviewed and discussed with nursing staff. Less depressed and less anxious. Has elevated bp and discussed public safety police 02/23/2019: Chart reviewed and discussed with nursing staff regarding participation in group and [facility] milieu therapeutic environment which she appears to be doing. She still remains depressed and anxious with an elevated blood pressure. She has no suicidal homicidal thoughts today. Her anxiety remains high with 6 out of 10 and depression 5 out of 10. Objective - Vital Signs Vital signs: Vital Signs Temp 98.5 F 02/23/19 06:35 Pulse 77 02/23/19 08:57 Resp 18 02/23/19 06:35 BP 134/92 02/23/19 08:57 Pulse Ox 97 02/21/19 05:46 Intake & Output 02/22/19 02/23/19 02/23/19 18:59 06:59 18:59 Weight 65.9 kg - Labs CBC & Chem 7: 02/20/19 23:00 02/20/19 23:00 Assessment and Plan Assessment: This a 47-year-old female history depression and suicidal thoughts and attempts years ago who states she's been depressed for past couple months. She was brought in today by her ex- because of being depressed and suicidal she states she bought NyQuil and 72 sleeping pills yesterday but did not take them. She is alcohol she states she has not drank however suggest day. She also has a history of hypertension and did not take her medication for the past 2 days but did taken just prior to admission today. Upon arrival for blood pressure was 242/140. She denies any symptoms however. She was in a relationship with the ex-boyfriend she states her ex-boyfriend his girlfriend got a fight from her job and it is having to the stress. No other MD Complaint: suicidal ideation, feels depressed Pt presents voluntary to [facility] /c c/o suicidal ideation /c a plan; 2 days ago pt bought 1 bottle of Nyquil and 72 OTC sleeping pills to end her life. Pt denies HI, denies hallucinations and no delusional thoughts verbalized. 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 Pt states "I've been having really bad problems /c depression. I'm just really depressed. I think there's something wrong /c me." A & O x4, good eye contact, soft, clear speech, depressed, tearful mood.Pt states she's lost approximately 20 lbs in past 2 months d/t decreased appetitePt states in the past month she's had considerable increase consumption of ETOH; pt states she drinks approximately 5 days out of 7 and drinks approximately 11-12 beers. Pt states she's never had any seizures. Pt states she has gone through ETOH withdrawal in the past. Mental Status Examination - this is a 48-year-old female who is who arrived reacquainted herself with her ex- and was having a relationship with him. She then became enamored with a person on Facebook and had a relationship with that person who turned out to be a catastrophic nightmare. She was depressed at age 18 and was placed on Lexapro which did not help her that much. 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 She states that her father was alcoholic and is now recovered. Her drinking increased after that relationship was falling apart until the point where she is not able to sleep at night. She was drinking all night long she therefore was brought in by her ex- for treatment because they did not like rubbed she was taking and that he had an intervention. Her last drink was on 02/19/2019. General Appearance: [well groomed, casual, appears stated age Speech/Language: [spontaneous, soft Attitude/Behavior: [cooperative, guarded Mood: [ depressed, anxious, hopelessness Affect: [ flat, blunted constricted] Orientation: [time, person, place situation] Thought Content: [wnl, denies delusions, obsessions, phobias, other] Risk Factors: [Admits suicidal (ideations, plan), and/or Homicidal (ideations, plan), other] Perception: [wnl, denies hallucinations (auditory, visual, tactile), other] Thought Processes: [goal-oriented Concentration/Attention Span: [wnl, [Per observation and interview with the patient] Recent Memory: [wnl, i 3 out of 3 in 3 minutes] Remote Memory: [wnl] [past events, as related history] Intelligence: [ above average] [based on history, based on vocabulary, syntax, grammar, and content] Judgement: [fair] [per patient's behavior/history of present illness] Insight: [Fair] [understanding severity of illness/history of present illness] Admitting Diagnosis: [Major depressive disorder severe and suicidal ideation; alcohol use disorder severe] Initial Plan of Care: [Patient admitted on a formal voluntary to [address] [place] [address] for evaluation and treatment of major depressive disorder with suicidal ideation. She will be evaluated by medicine, psychiatry, nursing staff, social work and occupational therapy. She'll be placed in [facility] milieu therapeutic environment and expects to go to groups and interact in peer environment within a appropriate manner. She will be placed on 15 minute checks as usual protocol on [facility]. She also be placed on Catapres 0.1 mg twice a day for alcohol withdrawal, started on Effexor 37.5 mg by mouth daily at bedtime extended release and ReVia 50 mg at bedtime to decrease craving for alcohol. Titration of his medications will occur over the next 4 days 02/22/2019: ReVia 50 mg at bedtime and she has no side effects from the medication. Effexor will be increased to 75 mg by mouth daily at bedtime extended release and Catapres will be raised to 0.2 mg 3 times a day for withdrawal blood pressure. She'll remain on 15 minute checks for safety. We discussed further treatment for her alcohol use disorder and possibility of [place] bring that up on team meeting on Sunday. 02/23/2019: She remains on 15 minute checks for safety and usual protocol for mental health unit. Effexor will be increased to 150 mg by mouth daily at bedtime extended release and Catapres remain at 0.2 mg 3 times a day for blood pressure and withdrawal. We'll change her atenolol to Norvasc 5 mg tomorrow for better blood pressure control along with her last control which helps protect her left ventricular. Will discuss tomorrow with social work regarding her going on to [place] for substance abuse treatment which is precipitates her depression. ] (1) Depression Current Visit: Yes Status: Acute Priority: Medium Code(s): F32.9 - MAJOR DEPRESSIVE DISORDER, SINGLE EPISODE, UNSPECIFIED SNOMED Code(s): 70426084 Time with Patient: Less than 30
[2019-02-23] MEDS: VENLAFAXINE HCL ER 150 MG CAP PO SCH (21:10)
[2019-02-23] MEDS: NALTREXONE HCL 50 MG TAB PO SCH (21:10)
[2019-02-24] MEDS: LORazepam 1 MG TAB PO PRN (06:54)
[2019-02-24] MEDS: cloNIDine HCL 0.2 MG TAB PO SCH ×3 (08:31→21:33)
[2019-02-24] MEDS: LISINOPRIL 20 MG TAB PO SCH (08:31)
[2019-02-24] MEDS ORDERED: amLODIPine 5 MG TAB PO SCH (09:00)
--- NOTE | 2019-02-24 12:29 | P.PN ---
Subjective Progress Note Date: 02/24/19 Principal diagnosis: Major depressive disorder severe and suicidal ideation; alcohol use disorder severe Chart reviewed and discussed with nursing staff. Less depressed and less anxious. Has elevated bp and discussed ground [employer] 02/23/2019: Chart reviewed and discussed with nursing staff regarding participation in group and [facility] therapeutic environment which she appears to be doing. She still remains depressed and anxious with an elevated blood pressure. She has no suicidal homicidal thoughts today. Her anxiety remains high with 6 out of 10 and depression 5 out of 10. 02/24/2019: Chart reviewed, discussed with nursing staff, and discussed in team today regarding disposition and discharge. She would like to go home to arrange that her ex- can take care of bills and her name. We discussed again going to [place] for substance abuse treatment and she is willing to the as mentioned wants to go home first arrange. She has less depressed and less anxious today. Her blood pressure remains elevated and increase of medicines will be addressed. She has no suicidal homicidal thoughts today. Her anxiety is decreased and her depression has decreased back to baseline. Objective - Vital Signs Vital signs: Vital Signs Temp 98.5 F 02/24/19 06:47 Pulse 71 02/24/19 06:47 Resp 18 02/24/19 06:47 BP 161/100 02/24/19 06:47 Pulse Ox 97 02/21/19 05:46 Intake & Output 02/23/19 02/24/19 02/24/19 18:59 06:59 18:59 Weight 65.9 kg - Labs CBC & Chem 7: 02/20/19 23:00 02/20/19 23:00 Assessment and Plan Assessment: This a 47-year-old female history depression and suicidal thoughts and attempts years ago who states she's been depressed for past couple months. She was brought in today by her ex- because of being depressed and suicidal she states she bought NyQuil and 72 sleeping pills yesterday but did not take them. She is alcohol she states she has not drank however suggest day. She also has a history of hypertension and did not take her medication for the past 2 days but did taken just prior to admission today. Upon arrival for blood pressure was 242/140. She denies any symptoms however. She was in a relationship with the ex-boyfriend she states her ex-boyfriend his girlfriend got a fight from her job and it is having to the stress. No other MD Complaint: suicidal ideation, feels depressed Pt presents voluntary to [facility] /c c/o suicidal ideation /c a plan; 2 days ago pt bought 1 bottle of Nyquil and 72 OTC sleeping pills to end her life. Pt denies HI, denies hallucinations and no delusional thoughts verbalized. 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 Pt states "I've been having really bad problems /c depression. I'm just really depressed. I think there's something wrong /c me." A & O x4, good eye contact, soft, clear speech, depressed, tearful mood.Pt states she's lost approximately 20 lbs in past 2 months d/t decreased appetitePt states in the past month she's had considerable increase consumption of ETOH; pt states she drinks approximately 5 days out of 7 and drinks approximately 11-12 beers. Pt states she's never had any seizures. Pt states she has gone through ETOH withdrawal in the past. Mental Status Examination - this is a 48-year-old female who is who arrived reacquainted herself with her ex- and was having a relationship with him. She then became enamored with a person on Facebook and had a relationship with that person who turned out to be a catastrophic nightmare. She was depressed at age 18 and was placed on Lexapro which did not help her that much. 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 She states that her father was alcoholic and is now recovered. Her drinking increased after that relationship was falling apart until the point where she is not able to s leep at night. She was drinking all night long she therefore was brought in by her ex- for treatment because they did not like rubbed she was taking and that he had an intervention. Her last drink was on 02/19/2019. General Appearance: [well groomed, casual, appears stated age Speech/Language: [spontaneous, soft Attitude/Behavior: [cooperative, guarded Mood: [ depressed, anxious, hopelessness Affect: [ flat, blunted constricted] Orientation: [time, person, place situation] Thought Content: [wnl, denies delusions, obsessions, phobias, other] Risk Factors: [Admits suicidal (ideations, plan), and/or Homicidal (ideations, plan), other] Perception: [wnl, denies hallucinations (auditory, visual, tactile), other] Thought Processes: [goal-oriented Concentration/Attention Span: [wnl, [Per observation and interview with the patient] Recent Memory: [wnl, i 3 out of 3 in 3 minutes] Remote Memory: [wnl] [past events, as related history] Intelligence: [ above average] [based on history, based on vocabulary, syntax, grammar, and content] Judgement: [fair] [per patient's behavior/history of present illness] Insight: [Fair] [understanding severity of illness/history of present illness] Admitting Diagnosis: [Major depressive disorder severe and suicidal ideation; alcohol use disorder severe] Initial Plan of Care: [Patient admitted on a formal voluntary to [address] [place] [address] for evaluation and treatment of major depressive disorder with suicidal ideation. She will be evaluated by medicine, psychiatry, nursing staff, social work and occupational therapy. She'll be placed in [facility] therapeutic environment and expects to go to groups and interact in peer envir onment within a appropriate manner. She will be placed on 15 minute checks as usual protocol on [facility]. She also be placed on Catapres 0.1 mg twice a day for alcohol withdrawal, started on Effexor 37.5 mg by mouth daily at bedtime extended release and ReVia 50 mg at bedtime to decrease craving for alcohol. Titration of his medications will occur over the next 4 days 02/22/2019: ReVia 50 mg at bedtime and she has no side effects from the medication. Effexor will be increased to 75 mg by mouth daily at bedtime extended release and Catapres will be raised to 0.2 mg 3 times a day for withdra wal blood pressure. She'll remain on 15 minute checks for safety. We discussed further treatment for her alcohol use disorder and possibility of [place] bring that up on team meeting on Sunday. 02/23/2019: She remains on 15 minute checks for safety and usual protocol for mental health unit. Effexor will be increased to 150 mg by mouth daily at bedtime extended release and Catapres remain at 0.2 mg 3 times a day for blood pressure and withdrawal. We'll change her atenolol to Norvasc 5 mg tomorrow for better blood pressure control along with her last control which helps protect her left ventricular. Will discuss tomorrow with social work regarding her going on to [place] for substance abuse treatment which is precipitates her depression. 02/24/2019: She remains on 15 minute checks for safety and usual protocol the mental health unit. Effexor has been stabilized 150 mg by mouth daily at bedtime extended release and Catapres remain 0.2 mg 3 times a day. Her blood pressure still remains high and will increase her Norvasc to 10 mg by mouth daily. She remains on a lisinopril. She has no side effects from rate ReVia at the current time. We'll discuss in team this morning regarding her going on to [place] long-term treatment for her continued alcohol use disorder which needs to be addressed for her stability in life. ] (1) Depression Current Visit: Yes Status: Acute Priority: Medium Code(s): F32.9 - MAJOR DEPRESSIVE DISORDER, SINGLE EPISODE, UNSPECIFIED SNOMED Code(s): 41410220 Time with Patient: Less than 30
[2019-02-24] MEDS: VENLAFAXINE HCL ER 150 MG CAP PO SCH (21:32)
[2019-02-24] MEDS: NALTREXONE HCL 50 MG TAB PO SCH (21:32)
[2019-02-25] MEDS: amLODIPine 10 MG TAB PO SCH (09:36)
[2019-02-25] MEDS: LISINOPRIL 20 MG TAB PO SCH (09:36)
[2019-02-25] MEDS: cloNIDine HCL 0.2 MG TAB PO SCH ×3 (09:36→21:16)
--- NOTE | 2019-02-25 12:18 | P.PN ---
Subjective Progress Note Date: 02/25/19 Principal diagnosis: Major depressive disorder severe and suicidal ideation; alcohol use disorder severe Chart reviewed and discussed with nursing staff. Less depressed and less anxious. 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 She still remains depressed and anxious with an elevated blood pressure. She has no suicidal homicidal thoughts today. Her anxiety remains high with 6 out of 10 and depression 5 out of 10. 02/24/2019: Chart reviewed, discussed with nursing staff, and discussed in team today regarding disposition and discharge. She would like to go home to arrange that her ex- can take care of bills and her name. We discussed again going to [facility] for substance abuse treatment and she is willing to the as mentioned wants to go home first arrange. She has less depressed and less anxious today. Her blood pressure remains elevated and increase of medicines will be addressed. She has no suicidal homicidal thoughts today. Her anxiety is decreased and her depression has decreased back to baseline. 02/25/2019: Chart reviewed, discussed with nursing staff and extensively discussed in team. After family meeting she'll be discharged tomorrow. She feels that her mood is improved and has decreased craving for alcohol this time. We'll maintain her medications. Objective - Vital Signs Vital signs: Vital Signs Temp 97.9 F 02/25/19 06:04 Pulse 84 02/25/19 06:04 Resp 16 02/25/19 06:04 BP 136/95 02/25/19 06:04 Pulse Ox 97 02/21/19 05:46 - Labs CBC & Chem 7: 02/20/19 23:00 02/20/19 23:00 Assessment and Plan Assessment: This a 47-year-old female history depression and suicidal thoughts and attempts years ago who states she's been depressed for past couple months. She was br ought in today by her ex- because of being depressed and suicidal she states she bought NyQuil and 72 sleeping pills yesterday but did not take them. She is alcohol she states she has not drank however suggest day. She also has a history of hypertension and did not take her medication for the past 2 days but did taken just prior to admission today. Upon arrival for blood pressure was 242/140. She denies any symptoms however. She was in a relationship with the ex-boyfriend she states her ex-boyfriend his girlfriend got a fight from her job and it is having to the stress. No other MD Complaint: suicidal ideation, feels depressed Pt presents voluntary to [facility] /c c/o suicidal ideation /c a plan; 2 days ago pt bought 1 bottle of Nyquil and 72 OTC sleeping pills to end her life. Pt denies HI, denies hallucinations and no delusional thoughts verbalized. 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 Pt states "I've been having really bad problems /c depression. I'm just really depressed. I think there's something wrong /c me." A & O x4, good eye contact, soft, clear speech, depressed, tearful mood.Pt states she's lost approximately 20 lbs in past 2 months d/t decreased appetitePt states in the past month she's had considerable increase consumption of ETOH; pt states she drinks approximately 5 days out of 7 and drinks approximately 11-12 beers. Pt states she's never had any seizures. Pt states she has gone through ETOH withdrawal in the past. Mental Status Examination - this is a 48-year-old female who is who arrived reacquainted herself with her ex- and was having a relationship with him. She then became enamored with a person on Facebook and had a relationship with that person who turned out to be a catastrophic nightmare. She was depressed at age 18 and was placed on Lexapro which did not help her that much. 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 She states that her father was alcoholic and is now recovered. Her drinking increased after letty t relationship was falling apart until the point where she is not able to sleep at night. She was drinking all night long she therefore was brought in by her ex- for treatment because they did not like rubbed she was taking and that he had an intervention. Her last drink was on 02/19/2019. General Appearance: [well groomed, casual, appears stated age Speech/Language: [spontaneous, soft Attitude/Behavior: [cooperative, guarded Mood: [ depressed, anxious, hopelessness Affect: [ flat, blunted constricted] Orientation: [time, person, place situation] Thought Content: [wnl, denies delusions, obsessions, phobias, other] Risk Factors: [Admits suicidal (ideations, plan), and/or Homicidal (ideations, plan), other] Perception: [wnl, denies hallucinations (auditory, visual, tactile), other] Thought Processes: [goal-oriented Concentration/Attention Span: [wnl, [Per observation and interview with the patient] Recent Memory: [wnl, i 3 out of 3 in 3 minutes] Remote Memory: [wnl] [past events, as related history] Intelligence: [ above average] [based on history, based on vocabulary, syntax, grammar, and content] Judgement: [fair] [per patient's behavior/history of present illness] Insight: [Fair] [understanding severity of illness/history of present illness] Admitting Diagnosis: [Major depressive disorder severe and suicidal ideation; alcohol use disorder severe] Initial Plan of Care: [Patient admitted on a formal voluntary to [address] [place] [address] for evaluation and treatment of major depressive disorder with suicidal ideation. She will be evaluated by medicine, psychiatry, nursing staff, social work and occupational therapy. She'll be placed in [facility] milieu therapeutic environment and expects to go to groups and interact in peer environment within a appropriate manner. She will be placed on 15 minute checks as usual protocol on [facility]. She also be placed on Catapres 0.1 mg twice a day for alcohol withdrawal, started on Effexor 37.5 mg by mouth daily at bedtime extended release and ReVia 50 mg at bedtime to decrease craving for alcohol. Titration of his medications will occur over the next 4 days 02/22/2019: ReVia 50 mg at bedtime and she has no side effects from the medication. Effexor will be increased to 75 mg by mouth daily at bedtime exten ded release and Catapres will be raised to 0.2 mg 3 times a day for withdrawal blood pressure. She'll remain on 15 minute checks for safety. We discussed further treatment for her alcohol use disorder and possibility of [facility] bring that up on team meeting on Sunday. 02/23/2019: She remains on 15 minute checks for safety and usual protocol for mental health unit. Effexor will be increased to 150 mg by mouth daily at bedtime extended release and Catapres remain at 0.2 mg 3 times a day for blood pressure and withdrawal. We'll change her atenolol to Norvasc 5 mg tomorrow for better blood pressure control along with her last control which helps protect her left ventricular. Will discuss tomorrow with social work regarding her going on to [facility] for substance abuse treatment which is precipitates her depression. 02/24/2019: She remains on 15 minute checks for safety and usual protocol the mental health unit. Effexor has been stabilized 150 mg by mouth daily at bedtime extended release and Catapres remain 0.2 mg 3 times a day. Her blood pressure still remains high and will increase her Norvasc to 10 mg by mouth daily. She remains on a lisinopril. She has no side effects from rate ReVia at the current time. We'll discuss in team this morning regarding her going on to [facility] long-term treatment for her continued alcohol use disorder which needs to be addressed for her stability in life. 02/25/2019: She remains on 15 minute checks for safety and usual protocol for mental health unit. Effexor is now stabilized 150 mg. Norvasc 10 mg at stabilized blood pressure. She remains on lisinopril, ReVia for alcohol cravings. 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 This puts her at a higher relapse rate but she wants to make sure her ex- makes arrangements for the bills. ] (1) Depression Current Visit: Yes Status: Acute Priority: Medium Code(s): F32.9 - MAJOR DEPRESSIVE DISORDER, SINGLE EPISODE, UNSPECIFIED SNOMED Code(s): 97651490 Time with Patient: Less than 30
[2019-02-25] MEDS: LORazepam 1 MG TAB PO PRN (13:26)
[2019-02-25] MEDS: VENLAFAXINE HCL ER 150 MG CAP PO SCH (21:15)
[2019-02-25] MEDS: NALTREXONE HCL 50 MG TAB PO SCH (21:15)
[2019-02-26 06:45] VITALS: RESP 14; TEMP 98.6
[2019-02-26] MEDS: LISINOPRIL 20 MG TAB PO SCH (08:29)
[2019-02-26] MEDS: amLODIPine 10 MG TAB PO SCH (08:29)
[2019-02-26] MEDS: cloNIDine HCL 0.2 MG TAB PO SCH (08:30)
[2019-02-26 09:08] VITALS: BP 98/57; PULSE 92
--- NOTE | 2019-02-26 11:22 | P.DS ---
Providers Date of admission: 02/21/19 04:57 Expected date of discharge: 02/26/19 Attending physician: Cordell Werner DO Consults: 02/21/19 05:08 Consult Physician Routine Consulting Provider: Ayaan Patten Consult Reason/Comments: For H & P for Medical Follow Up Do you want consulting provider notified?: Yes, Notify in am Primary care physician: Justin Rojas - Discharge Diagnosis(es) (1) Depression Allergies Allergy/AdvReac Type Severity Reaction Status Date / Time No Known Allergies Allergy Verified 02/21/19 05:58 Vital Signs Temp 98.5 F 02/21/19 05:46 Pulse 72 02/21/19 08:51 Resp 18 02/21/19 08:51 BP 159/88 02/21/19 08:51 Pulse Ox 97 02/21/19 05:46 Intake & Output 02/20/19 02/21/19 02/21/19 18:59 06:59 18:59 Weight 66.338 kg Laboratory Last Values WBC 6.3 k/uL (3.8-10.6) 02/20/19 23:00 RBC 4.74 m/uL (3.80-5.40) 02/20/19 23:00 Hgb 15.2 gm/dL (11.4-16.0) 02/20/19 23:00 Hct 44.2 % (34.0-46.0) 02/20/19 23:00 MCV 93.1 fL (80.0-100.0) 02/20/19 23:00 MCH 31.9 pg (25.0-35.0) 02/20/19 23:00 MCHC 34.3 g/dL (31.0-37.0) 02/20/19 23:00 RDW 13.7 % (11.5-15.5) 02/20/19 23:00 Plt Count 183 k/uL (150-450) 02/20/19 23:00 Neutrophils % 80 % 02/20/19 23:00 Lymphocytes % 11 % 02/20/19 23:00 Monocytes % 5 % 02/20/19 23:00 Eosinophils % 2 % 02/20/19 23:00 Basophils % 1 % 02/20/19 23:00 Neutrophils # 5.1 k/uL (1.3-7.7) 02/20/19 23:00 Lymphocytes # 0.7 k/uL (1.0-4.8) L 02/20/19 23:00 Monocytes # 0.3 k/uL (0-1.0) 02/20/19 23:00 Eosinophils # 0.1 k/uL (0-0.7) 02/20/19 23:00 Basophils # 0.0 k/uL (0-0.2) 02/20/19 23:00 Sodium 138 mmol/L (137-145) 02/20/19 23:00 Potassium 3.9 mmol/L (3.5-5.1) 02/20/19 23:00 Chloride 106 mmol/L (98-107) 02/20/19:00 Carbon Dioxide 25 mmol/L (22-30) 02/20/19 23:00 Anion Gap 7 mmol/L 02/20/19 23:00 BUN 9 mg/dL (7-17) 02/20/19:00 Creatinine 0.54 mg/dL (0.52-1.04) 02/20/19 23:00 Est GFR (CKD-EPI)AfAm >90 (>60 ml/min/1.73 sqM) 02/20/19 23:00 Est GFR (CKD-EPI)NonAf >90 (>60 ml/min/1.73 sqM) 02/20/19 23:00 Glucose 136 mg/dL (74-99) H 02/20/19 23:00 Calcium 9.8 mg/dL (8.4-10.2) 02/20/19:00 Magnesium 1.8 mg/dL (1.6-2.3) 02/20/19 23:00 Total Bilirubin 0.5 mg/dL (0.2-1.3) 02/20/19 23:00 AST 135 U/L (14-36) H 02/20/19 23:00 ALT 180 U/L (9-52) H 02/20/19 23:00 Alkaline Phosphatase 76 U/L (38-126) 02/20/19 23:00 Total Creatine Kinase 41 U/L (30-135) 02/20/19 23:00 CK-MB (CK-2) 0.6 ng/mL (0.0-2.4) 02/20/19 23:00 CK-MB (CK-2) Rel Index 1.5 02/20/19 23:00 Total Protein 6.9 g/dL (6.3-8.2) 02/20/19 23:00 Albumin 4.3 g/dL (3.5-5.0) 02/20/19 23:00 Urine HCG, Qual Not Detected (Not Detectd) 02/20/19 22:30 Urine Opiates Screen Not Detected (NotDetected) 02/20/19 22:30 Ur Oxycodone Screen Not Detected (NotDetected) 02/20/19 22:30 Urine Methadone Screen Not Detected (NotDetected) 02/20/19 22:30 Ur Propoxyphene Screen Not Detected (NotDetected) 02/20/19 22:30 Ur Barbiturates Screen Not Detected (NotDetected) 02/20/19 22:30 U Tricyclic Antidepress Not Detected (NotDetected) 02/20/19 22:30 Ur Phencyclidine Scrn Not Detected (NotDetected) 02/20/19 22:30 Ur Amphetamines Screen Not Detected (NotDetected) 02/20/19 22:30 U Methamphetamines Scrn Not Detected (NotDetected) 02/20/19 22:30 U Benzodiazepines Scrn Not Detected (NotDetected) 02/20/19 22:30 Urine Cocaine Screen Not Detected (NotDetected) 02/20/19 22:30 U Marijuana (THC) Screen Not Detected (NotDetected) 02/20/19 22:30 Assessment and Plan Assessment: This a 47-year-old female history depression and suicidal thoughts and attempts years ago who states she's been depressed for past couple months. She was brought in today by her ex- because of being depressed and suicidal she states she bought NyQuil and 72 sleeping pills yesterday but did not take them. She is alcohol she states she has not drank however suggest day. She also has a history of hypertension and did not take her medication for the past 2 days but did taken just prior to admission today. Upon arrival for blood pressure was 242/140. She denies any symptoms however. She was in a relationship with the ex-boyfriend she states her ex-boyfriend his girlfriend got a fight from her job and it is having to the stress. No other MD Complaint: suicidal ideation, feels depressed Pt presents voluntary to [facility] /c c/o suicidal ideation /c a plan; 2 days ago pt bought 1 bottle of Nyquil and 72 OTC sleeping pills to end her life. Pt denies HI, denies hallucinations and no delusional thoughts verbalized. 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 Pt states "I've been having really bad p roblems /c depression. I'm just really depressed. I think there's something wrong /c me." A & O x4, good eye contact, soft, clear speech, depressed, tearful mood.Pt states she's lost approximately 20 lbs in past 2 months d/t decreased appetitePt states in the past month she's had considerable increase consumption of ETOH; pt states she drinks approximately 5 days out of 7 and drinks approximately 11-12 beers. Pt states she's never had any seizures. Pt states she has gone through ETOH withdrawal in the past. - Related Data Home Medications Medication Instructions Recorded Confirmed Atenolol 25 mg PO DAILY 04/14/18 02/20/19 Lisinopril [Zestril] 20 mg PO DAILY 04/14/18 02/20/19 ALPRAZolam [Xanax] 0.25 mg PO Q12HR PRN 01/13/19 02/20/19 Ibuprofen [Motrin] 800 mg PO DAILY PRN 01/13/19 02/20/19 Allergies Allergy/AdvReac Type Severity Reaction Status Date / Time No Known Allergies Allergy Verified 02/20/19 22:18 Past Medical History Past Medical History: Hypertension History of Any Multi-Drug Resistant Organisms: None Reported Past Surgical History: No Surgical Hx Reported Past Psychological History: Anxiety, Bipolar, Depression Smoking Status: Current some day smoker Past Alcohol Use History: Abuse, Daily Past Drug Use History: None Reported Musculoskeletal Examination - Abnormal/Involuntary Movements: [none Strength: [greater than antigravity (greater than/equal to 3/5) in all extremities Muscle Tone: [no impairment Gait: [grossly normal Station: [grossly normal Mental Status Examination - this is a 48-year-old female who is who arrived reacquainted herself with her ex- and was having a relationship with him. She then became enamored with a person on Facebook and had a relationship with that person who turned out to be a catastrophic nightmare. She was depressed at age 18 and was placed on Lexapro which did not help her that much. 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 She states that her father was alcoholic and is now recovered. Her drinking increased after that relationship was falling apart until the point where she is not able to sleep at night. She was drinking all night long she therefore was brought in by her ex- for treatment because they did not like rubbed she was taking and that he had an intervention. Her last drink was on 02/19/2019. General Appearance: [well groomed, casual, appears stated age Speech/Language: [spontaneous, soft Attitude/Behavior: [cooperative, guarded Mood: [ depressed, anxious, hopelessness Affect: [ flat, blunted constricted] Orientation: [time, person, place situation] Thought Content: [wnl, denies delusions, obsessions, phobias, other] Risk Factors: [Admits suicidal (ideations, plan), and/or Homicidal (ideations, plan), other] Perception: [wnl, denies hallucinations (auditory, visual, tactile), other] Thought Processes: [goal-oriented Concentration/Attention Span: [wnl, [Per observation and interview with the patient] Recent Memory: [wnl, i 3 out of 3 in 3 minutes] Remote Memory: [wnl] [past events, as related history] Intelligence: [ above average] [based on history, based on vocabulary, syntax, grammar, and content] Judgement: [fair] [per patient's behavior/history of present illness] Insight: [Fair] [understanding severity of illness/history of present illness] Admitting Diagnosis: [Major depressive disorder severe and suicidal ideation; alcohol use disorder severe] Current Visit: Yes Status: Acute Priority: Low Hospital Course: Plan of Care: [Patient admitted on a formal voluntary to [address] [place] [address] for evaluation and treatment of major depressive disorder with suicidal ideation. She will be evaluated by medicine, psychiatry, nursing staff, social work and occupational therapy. She'll be placed in [facility] milieu therapeutic environment and expects to go to groups and interact in peer environment within a appropriate manner. She will be placed on 15 minute checks as usual protocol on [facility]. She also be placed on Catapres 0.1 mg twice a day for alcohol withdrawal, started on Effexor 37.5 mg by mouth daily at bedtime extended release and ReVia 50 mg at bedtime to decrease craving for alcohol. Titration of his medications will occur over the next 4 days 02/22/2019: ReVia 50 mg at bedtime and she has no side effects from the medication. Effexor will be increased to 75 mg by mouth daily at bedtime extended release and Catapres will be raised to 0.2 mg 3 times a day for withdrawal blood pressure. She'll remain on 15 minute checks for safety. We discussed further treatment for her alcohol use disorder and possibility of [facility] bring that up on team meeting on Sunday. 02/23/2019: She remains on 15 minute checks for safety and usual protocol for mental health unit. Effexor will be increased to 150 mg by mouth daily at bedtime extended release and Catapres remain at 0.2 mg 3 times a day for blood pressure and withdrawal. We'll change her atenolol to Norvasc 5 mg tomorrow for better blood pressure control along with her last control which helps protect her left ventricular. Will discuss tomorrow with social work regarding her going on to [facility] for substance abuse treatment which is precipitates her depression. 02/24/2019: She remains on 15 minute checks for safety and usual protocol the mental health unit. Effexor has been stabilized 150 mg by mouth daily at bedtime extended release and Catapres remain 0.2 mg 3 times a day. Her blood pressure still remains high and will increase her Norvasc to 10 mg by mouth daily. She remains on a lisinopril. She has no side effects from rate ReVia at the current time. We'll discuss in team this morning regarding her going on to [facility] long-term treatment for her continued alcohol use disorder which needs to be addressed for her stability in life. 02/25/2019: She remains on 15 minute checks for safety and usual protocol for mental health unit. Effexor is now stabilized 150 mg. Norvasc 10 mg at stabilized blood pressure. She remains on lisinopril, ReVia for alcohol cr avings. 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 This puts her at a higher relapse rate but she wants to make sure her ex- makes arrangements for the bills. ] Mental status examination time of discharge 02/26/2019 11:20 AM: The patient presents alert, pleasant, and cooperative. There calmly seated without any agitated behavior. [She] reports that [her] mood is good. Affect is congruent and euthymic. [She] deny having any suicidal or homicidal ideation intent or plan. [She] denies any auditory or visual hallucinations. There is no evidence of any delusional thought content. [Her] thought process is linear and goal-directed. [Her] speech is fluent and nonpressured. [Her] memory and concentration is grossly intact for the purposes of this session. Patient Condition at Discharge: Stable Plan - Discharge Summary Discharge Rx Participant: Yes New Discharge Prescriptions: New cloNIDine HCL [Catapres] 0.2 mg PO TID 30 Days #90 tab Venlafaxine HCl ER [Effexor XR] 150 mg PO 2100 30 Days #30 cap.er.24h amLODIPine [Norvasc] 10 mg PO DAILY 30 Days #30 tab Naltrexone HCl [Revia] 50 mg PO 2099 30 Days #30 tab Continue Lisinopril [Zestril] 20 mg PO DAILY Ibuprofen [Motrin] 800 mg PO DAILY PRN PRN Reason: Pain Discontinued Atenolol 25 mg PO DAILY ALPRAZolam [Xanax] 0.25 mg PO Q12HR PRN PRN Reason: Anxiety Discharge Medication List Lisinopril [Zestril] 20 mg PO DAILY 04/14/18 [History] Ibuprofen [Motrin] 800 mg PO DAILY PRN 01/13/19 [History] Naltrexone HCl [Revia] 50 mg PO 2100 30 Days #30 tab 02/26/19 [Rx] Venlafaxine HCl ER [Effexor XR] 150 mg PO 2100 30 Days #30 cap.er.24h 02/26/19 [Rx] amLODIPine [Norvasc] 10 mg PO DAILY 30 Days #30 tab 02/26/19 [Rx] cloNIDine HCL [Catapres] 0.2 mg PO TID 30 Days #90 tab 02/26/19 [Rx] Follow up Appointment(s)/Referral(s): [facility] [Outside] - 1-2 Days (Walk In Intake 8:30-3 pm Sunday 8:30-3 pm) Deven Rojas MD [Primary Care Provider] - As Needed Patient Instructions/Handouts: Depression (GEN), Suicide Prevention (GEN) Activity/Diet/Wound Care/Special Instructions: Activity and diet as tolerated. Avoid the use of street drugs and alcohol. Take all medications as prescribed. When you are in need of refills on your medications please contact your medical provider and/or outpatient psychiatrist to have this done. Please go to scheduled outpatient appointment for aftercare treatment. If symptoms return or become worse, call the crisis line at and/or go to the nearest emergency room for an evaluation. Discharge Disposition: HOME SELF-CARE
== END 2019-02-26 13:26 | disposition home or self-care (01) | DRG 885 ==
LOC: EC 21:41 → 3MHU 02-21 04:57
PROVIDERS: ADMIT Psychiatry & Neurology Psychiatry; ATTEND Psychiatry & Neurology Psychiatry
DX: F32.2 Major depressive disorder, single episode, severe without psychotic features (principal); R45.851 Suicidal ideations; F41.9 Anxiety disorder, unspecified; I10 Essential (primary) hypertension; F17.210 Nicotine dependence, cigarettes, uncomplicated; F10.10 Alcohol abuse, uncomplicated; R19.7 Diarrhea, unspecified; Z56.0 Unemployment, unspecified; Z63.5 Disruption of family by separation and divorce; Z60.2 Problems related to living alone; T46.5X6A Underdosing of other antihypertensive drugs, initial encounter; Z91.128 Patient's intentional underdosing of medication regimen for other reason; Z82.49 Family history of ischemic heart disease and other diseases of the circulatory system; Z82.0 Family history of epilepsy and other diseases of the nervous system; Z81.1 Family history of alcohol abuse and dependence; Z91.5 Personal history of self-harm; Z79.899 Other long term (current) drug therapy
CPT/HCPCS: 36415; 80053; 80061; 80076; 80306; 81001; 81025; 82075; 82550; 82553; 83036; 83735; 84443; 85025; 87324; 93005; 96360; 96361; 99285

== ENCOUNTER 2021-09-08 20:50 | Emergency (ER) | payer OTHER ==
--- NOTE | 2021-09-08 21:43 | ED ---
Psych HPI - General Chief Complaint: Psychiatric Symptoms Stated Complaint: Mental Health brought in by [facility] Time Seen by Provider: 09/08/21 21:32 Source: patient, RN notes reviewed, old records reviewed Mode of arrival: ambulatory Limitations: no limitations - History of Present Illness Initial Comments: This is a 51-year-old female to the emergency room today for evaluation. Patient presents today for evaluation of significant alcohol intoxication and severe depression with suicidal thoughts. She is under petition by her sister brought in by PD for psychiatric evaluation and treatment MD Complaint: suicidal ideation, feels depressed, other (Alcohol intoxication) -: unknown Associated Psychiatric Symptoms: depression, suicidal ideation History of same: Yes Quality: constant Worsens With: none Context: recent alcohol abuse Associated Symptoms: denies other symptoms Treatments Prior to Arrival: placed on mental health hold If Self Harm: admits thoughts of self harm, has acted on plan - Related Data Home Medications Medication Instructions Recorded Confirmed lisinopriL [Zestril] 20 mg PO DAILY 04/14/18 09/08/21 Venlafaxine HCl ER [Effexor XR] 150 mg PO DAILY 09/08/21 09/08/21 atenoloL 25 mg PO DAILY 09/08/21 09/08/21 Previous Rx's Medication Instructions Recorded amLODIPine [Norvasc] 10 mg PO DAILY 30 Days #30 tab 02/26/19 Allergies Allergy/AdvReac Type Severity Reaction Status Date / Time No Known Allergies Allergy Verified 09/08/21 21:17 Review of Systems ROS Statement: Those systems with pertinent positive or pertinent negative responses have been documented in the HPI. ROS Other: All systems not noted in ROS Statement are negative. Past Medical History Past Medical History: Hypertension History of Any Multi-Drug Resistant Organisms: None Reported Past Surgical History: No Surgical Hx Reported Additional Past Surgical History / Comment(s): Colonoscopy x3 Past Anesthesia/Blood Transfusion Reactions: No Reported Reaction Past Psychological History: Anxiety, Bipolar, Depression Smoking Status: Current every day smoker Past Alcohol Use History: Abuse, Daily Past Drug Use History: None Reported - Past Family History Father Family Medical History: Dementia, Myocardial Infarction ([place]) Additional Family Medical History / Comment(s): Alcoholism Mother Family Medical History: Musculoskeletal Disorder Additional Family Medical History / Comment(s): Depression Son(s) Family Medical History: No Reported History Daughter(s) Family Medical History: No Reported History General Exam Limitations: no limitations General appearance: alert, appears intoxicated, anxious Head exam: Present: atraumatic, normocephalic, normal inspection Eye exam: Present: normal appearance, PERRL, EOMI. Absent: scleral icterus, conjunctival injection, periorbital swelling ENT exam: Present: normal exam, mucous membranes moist Neck exam: Present: normal inspection. Absent: tenderness, meningismus, lympha denopathy Respiratory exam: Present: normal lung sounds bilaterally. Absent: respiratory distress, wheezes, rales, rhonchi, stridor Cardiovascular Exam: Present: normal rhythm, tachycardia, normal heart sounds. Absent: systolic murmur, diastolic murmur, rubs, gallop, clicks GI/Abdominal exam: Present: soft, normal bowel sounds. Absent: distended, tenderness, guarding, rebound, rigid Extremities exam: Present: normal inspection, full ROM, normal capillary refill. Absent: tenderness, pedal edema, joint swelling, calf tenderness Back exam: Present: normal inspection Neurological exam: Present: alert, oriented X3, CN II-XII intact Psychiatric exam: Present: normal affect, normal mood Skin exam: Present: warm, dry, intact, normal color. Absent: rash Course Vital Signs 09/08/21 09/09/21 09/09/21 21:17 02:06 05:11 Temperature 98.1 F 98.9 F Pulse Rate 112 H 100 85 Respiratory 18 18 16 Rate Blood Pressure 186/102 162/88 214/101 O2 Sat by Pulse 95 95 98 Oximetry 09/09/21 08:44 Temperature 98.6 F Pulse Rate 86 Respiratory 18 Rate Blood Pressure 156/84 O2 Sat by Pulse 98 Oximetry - Reevaluation(s) Reevaluation #1: 09/09/21 07:13 Medical record is reviewed Reevaluation #2: 09/09/21 07:13 Medical clear for psychiatric evaluation Disposition Clinical Impression: Depression, Hypertension Disposition: HOME SELF-CARE Condition: Fair Instructions (If sedation given, give patient instructions): Depression (ED) Is patient prescribed a controlled substance at d/c from ED?: No Referrals: Deven Rojas MD [Primary Care Provider] - 1-2 days
[2021-09-09 08:46] VITALS: BP 156/84; PULSE 86; RESP 18; TEMP 98.6
== END 2021-09-09 08:45 | disposition home or self-care (01) ==
LOC: EC 20:50
DX: I10 Essential (primary) hypertension (principal); R45.851 Suicidal ideations; F32.9 Major depressive disorder, single episode, unspecified; F17.200 Nicotine dependence, unspecified, uncomplicated; Z79.899 Other long term (current) drug therapy
CPT/HCPCS: 82075; 99284